=== PATIENT | female | born 1970 | race Caucasian/White ===

== ENCOUNTER 2022-04-26 11:00 | Day surgery (SDC) | payer OTHER, SELFPAY ==
[2022-04-22 09:09] VITALS: BMI 26.6
[2022-04-26 11:56] VITALS: BP 114/35; PULSE 60; RESP 16; TEMP 36.9; O2SAT 99
--- NOTE | 2022-04-26 12:21 | MHC.SHP ---
Pre-Procedural Eval Section A Date of Service: 04/26/22 The patient is an INPATIENT: No The History & Physical has been completed within 30 days and I have reviewed it.: No Section B Chief Complaint: screening Details of Present Illness: Colon cancer screening Relevant Family History (Specify if Yes): No Relevant Social History: None Present Medications: see Short Stay Collaborative assessment Medical History: No relevant PMH History of Previous Operations: Relevant previous surgery/procedure and date(s) (History of loop electrical excision procedure (LEEP) History of lymph node excision Hx of cholecystectomy) Allergies: Allergies Allergy/AdvReac Type Severity Reaction Status Date / Time ciprofloxacin Allergy Severe Rash Verified 11/03/21 10:57 Review of Systems Sugical H&P ROS: Negative: Constitution, Cardiovascular, Respiratory and Gastrointestinal Exam Surgical H&P Exam: Normal: Heart, Normal: Lungs, Normal: Extremities and Normal: Abdomen Plan Diagnosis/Plan: Unchanged I have reviewed the history and physical and performed a pertinent physical examination on my patient. No changes have occurred unless specified.
[2022-04-26] MEDS: Lactated Ringers 1,000 ML 50 ML IVCONT (12:22)
--- NOTE | 2022-04-26 12:43 | HO.ANESPROP2 ---
HPI - Anesthesia Eval Consult details Narrative: [facility] Family History Family history of problems with anesthesia: No Surgical History Surgical History History of loop electrical excision procedure (LEEP) History of lymph node excision Hx of cholecystectomy History of Problems with Anesthesia: No Social History Social History Household Members: Spouse and Family Alcohol intake: current Alcohol intake frequency: does not drink Patient Tobacco Use Status: Never used Tobacco Second Hand Smoke Exposure: No Are you DNR?: No Advance Directives: No Advance Directives Information Provided: Yes Advance Directives on File: No Meds Allergies Allergy/AdvReac Type Severity Reaction Status Date / Time ciprofloxacin Allergy Severe Rash Verified 11/03/21 10:57 Active Medications: Current Medications Lactated Ringer's (Lr) 1,000 mls @ 50 mls/hr IVCONT .Q20H REYNALDO Last Admin: 04/26/22 12:22 Dose: 50 mls/hr Exam Exam Date and Time: April 26, 2022 1243 Height,Weight and Vital Signs: Height 5 ft 7 in Weight 77.111 kg Last Vital Signs Temp 98.4 F 04/26/22 11:56 Pulse 60 04/26/22 11:56 Resp 16 04/26/22 11:56 BP 114/35 L 04/26/22 11:56 Pulse Ox 99 04/26/22 11:56 O2 Del Method 04/26/22 11:56 Airway Mallampati Class: II TM Dist: >3cm Neck ROM: Full Loose/Missing/Broken Teeth: No Heart: [id number] Lungs: cta b/l Assessment and Plan Assessment Anesthesia Assessment: Anesthesia Plan Discussed and Chart Reviewed Final Anesthetic Review Family History of Problems with Anesthesia: No History of Problems with Anesthesia: No NPO: Yes ASA Class: II Final Preanesthetic Review: No Changes in Pt Med Stat, Meds/Allgs Chart Reviewed, Consent Obtained/Reviewed and Anes Risks/Benef Reviewed Patient Risk: Intermediate Procedure Risk: Low Assessment/Block/Sedation in SS: Assess/Block/Sedation-SS Anesthetic Plan Anesthetic Plan: MAC: and Agree w/ Assess. and Plan Disposition: Standard PACU
--- NOTE | 2022-04-26 13:34 | PM.OP ---
Brief Operative Note Date of Service: 04/26/22 Pre-op diagnosis: Colon cancer screening Post-op diagnosis: other (Colon polyps, diverticulosis, hemorrhoids) Procedure: COLONOSCOPY TO CECUM WITH SNARE POLYPECTOMY Surgeon: Lucita Greene MD Anesthesia: MAC Was an Shake Table Operator used for this Procedure?: Yes Shake Table Operator: Jose Mohamud Estimated blood loss (mL): 0 Pathology: other (A) Polyp Cecum B) Polyps Ascending Colon) Condition: stable Disposition: PACU
--- NOTE | 2022-04-26 13:34 | W.PM.OPN ---
Operative Note Operative Note Date of Service: 04/26/22 Narrative: Pre-op diagnosis: Colon cancer screening Post-op diagnosis:?other (Colon polyps, diverticulosis, hemorrhoids) Surgeon: Lucita Greene MD Anesthesia:?MAC COLONOSCOPY TILL CECUM WITH SNARE POLYPECTOMY Consent: Indications for the procedure and potential complications of bleeding, perforation, reaction to medications and missed diagnosis were discussed with the patient and informed consent was obtained. Instrument: Olympus PCF H 190 L variable stiffness pediatric colonoscope Monitoring: Vital signs and clinical assessment, intermittent blood pressure monitoring, continuous EKG monitoring, Pulse oximetry and Carbon Dioxide monitoring were done throughout the procedure. Colon withdrawl time was 26 minutes. Procedure: The patient was placed in the left lateral decubitis position and pre-procedure medications were administered. After a digital rectal examination of the ano-rectum, the video colonoscope was inserted into the rectum and advanced through the colon to the cecum. The colonoscope was slowly withdrawn in a retrograde panoramic fashion and the colon mucosa was carefully examined including a retroflexed view of the rectum. Findings and interventions are described below. Procedure Difficulty: LLQ pressure was applied to intubate the cecum Findings: Terminal Ileum: Not evaluated Cecum: A 2 cms sessile polyp removed with a hot snare Ascending Colon: Three 8 to 12 mm sessile polyps removed with a hot and a cold snare Transverse Colon: Normal Descending Colon: Moderate diverticulosis Sigmoid Colon: Moderate diverticulosis Rectum: Normal Ano-rectum: Moderate internal hemorrhoids Colon preparation: Good after some irrigation Impression and Post Procedure Diagnosis: Colonoscopy Findings: Four small to medium sized polyps removed Moderate diverticulosis seen in the left colon Moderate hemorrhoids on retroflexed exam. Plan: Await pathology results Patient has an appointment on 05/10/22 in the [facility] with Lauren Segal FNP-BC. Repeat Colonoscopy interval based on path results - in 3 years if polyps are adenomatous and 10 years if polyps are hyperplastic. Colon polyps and diverticulosis handouts were given in the discharge area
[2022-04-26 14:22] VITALS: BP 98/48; PULSE 75; RESP 16; TEMP 37.2; O2SAT 100
[2022-04-26 14:37] VITALS: BP 109/60; PULSE 68; RESP 16; TEMP 37.1; O2SAT 100
== END 2022-04-26 15:11 | disposition home or self-care (01) ==
PROVIDERS: PCP Registered Nurse; Visit Provider Internal Medicine Gastroenterology
PROC: 0DJD8ZZ Inspection of Lower Intestinal Tract, Via Natural or Artificial Opening Endoscopic (ICD-10-PCS; CPT 45378; principal; 2022-04-26 12:40)
DX: Z12.11 Encounter for screening for malignant neoplasm of colon (principal); D12.0 Benign neoplasm of cecum; D12.2 Benign neoplasm of ascending colon; K57.30 Diverticulosis of large intestine without perforation or abscess without bleeding; K64.8 Other hemorrhoids; Z90.49 Acquired absence of other specified parts of digestive tract; Z88.1 Allergy status to other antibiotic agents; Z98.890 Other specified postprocedural states
CPT/HCPCS: 45385; 88305